=== PATIENT | female | born 2000 | race Caucasian/White ===

== ENCOUNTER 2023-10-02 22:02 | Inpatient (IN) ==
[2023-10-02] MEDS ORDERED: SODIUM CHLORIDE 0.9% 1,000 ML IV STA (22:38)
[2023-10-02] MEDS ORDERED: ONDANSETRON INJ 2 MG/ML 2 ML VIAL IV STA (22:38)
[2023-10-02] MEDS ORDERED: KETOROLAC 30 MG/ML VIAL IV STA (22:38)
--- NOTE | 2023-10-02 22:46 | Emergency Department Note ---
Impression & Plan Abdominal pain, Nausea ED Provider Note CHIEF COMPLAINT: Right-sided abdominal pain x 10 hours HISTORY OF PRESENT ILLNESS: This 23-year-old female patient presents to the emergency department via private vehicle for evaluation of right-sided abdominal pain for about 10 hours. The patient states pain came on suddenly. 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 She denies any fever. Appetite has been decreased since the onset of the pain. No dysuria, urinary frequency, urinary hesitancy, hematuria. The patient denies any abnormal vaginal bleeding or discharge. She has had some diarrhea throughout the day. Last menstrual period was 3 weeks ago. The patient denies any chance of , notes she is currently taking OCPs and uses condoms every time she is sexually active. The patient did take 3 Excedrin without relief of her symptoms. Patient has never had symptoms like this before. REVIEW OF SYSTEMS: A 10 system review of systems was performed with positives and pertinent negatives listed in the history of present illness. All other systems were reviewed and are negative. ALLERGIES: None PHYSICAL EXAM: VITALS: Vitals are noted on the nurse's note and reviewed by myself. Vital signs stable. GENERAL: This is a 23-year-old female, in no acute distress, nondiaphoretic, well-developed well-nourished. SKIN: The skin was without rashes, erythema, edema, or bruising. There is no tenting of the skin. Capillary refill less than 2 seconds. HEAD: Normocephalic atraumatic. EYES: Conjunctivae without injection, sclerae without icterus. NECK: Supple without nuchal rigidity. No lymphadenopathy. No JVD. HEART: Regular rate and rhythm without murmurs gallops or rubs. LUNGS: Clear to auscultation bilaterally without wheezes, rales or rhonchi. No retractions or accessory muscle use. ABDOMEN: Positive bowel sounds x 4. Generalized tenderness to palpation. This is worse on the right side abdomen is otherwise soft, without masses or organomegaly. Davidson sign negative. No guarding or rebound tenderness. No CVA tenderness bilaterally. MUSCULOSKELETAL: No muscle atrophy, erythema, or edema noted. Full range of motion without joint tenderness in all extremities. No tenderness to palpation. Normal gait. Strength 5/5 throughout. NEURO: Patient was alert and oriented to person place and time. No focal neurological deficits. An order was placed for continuous cytotechnologist. The monitor showed a sinus tachycardia at a ventricular rate of 128 bpm, per my interpretation. EMERGENCY DEPARTMENT COURSE: The patient was seen and evaluated as above. The patient has been experiencing abdominal pain which started earlier today. This is generalized, but seems to localize somewhat in the right side, specifically the right lower quadrant. Workup completed as noted. IV access was obtained, labs were drawn. The patient was hydrated with IV fluids and medicated with Toradol and Zofran. Labs with mild leukocytosis of 13,000. No anemia or thrombocytopenia. CT imaging unable to exclude acute appendicitis. I did consult with Tuan Lr PA-C with general surgery. He did see and evaluate the patient. The patient will be admitted under the general surgery service. Please see surgery dictation regarding ongoing management care of this patient Differential diagnosis includes appendicitis, diverticulitis, obstruction, inflammatory bowel disease, renal colic, PUD, biliary pathology, pancreatitis, mesenteric ischemia, aortic pathology, infections, genitourinary, UTI, perforated viscus, as well as others were entertained. I attest that I have personally reviewed the patient's current medication list. Patient was found to have normal blood pressure on screening and does not require follow-up. The chart was completed utilizing [employer] Speech voice recognition software. Grammatical errors, random word insertions, pronoun errors, and incomplete sentences are an occasional consequence of this system due to software limitations, ambient noise, and hardware issues. Any formal questions or concerns about the content, text, or information contained within the body of this dictation should be directly addressed to the provider for clarification. Past Med/Surg History Medical History PCOS (polycystic ovarian syndrome) Hypothyroid Depression with anxiety Elevated testosterone level in female Surgical History H/O hand surgery (11/2021) left hand tendon excision- UOC- 11/28 Family History Father Family history of reaction to anesthesia SLOW TO WAKE Hypertension Mother Anxiety Other Myocardial infarction Denies family history of Ovarian cancer Prostate cancer Diabetes Breast cancer Colorectal cancer Social History Smoking Status: Never smoker Second Hand Exposure: No; Do You Dip or Chew Tobacco: No; Hx Alcohol Use: Yes Alcohol type: beer Alcohol Intake Frequency: 2-3 x/Week Hx Substance Use: No Preferred Language: Kittitian Communication Ability: Effective Hearing Ability: Normal 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: No Beliefs That Will Affect Care: None marital status: Single Current Living Situation: Family Current Living Situation Comment: mom and dad current occupational status: student 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) Other Information That Helps Us Care for You: No Feels Safe at Home: Yes Safety Concerns: Feels Safe At This Time Childhood Exposure to Second-Hand Smoke: No Diet: regular Diet Comment: regular caffeine: Yes during the past year weight has: remained stable Dental Care, Regularly: Yes Physical Activity Frequency: Daily Seatbelt Use: always Sunscreen Use: Yes Assistive Devices: Glasses Assistive Devices Comment: permanent retainer Allergies Allergies Allergy/AdvReac Type Severity Reaction Status Date / Time No Known Allergies Allergy Verified 08/26/23 13:20 Home Meds Home Medications Medication Instructions Recorded Confirmed multivitamin with minerals 1 dose PO QAM 02/13/19 08/26/23 (Hair,Skin and Nails tablet) melatonin 10 mg capsule 10 mg PO HS PRN 10/28/20 08/26/23 trazodone 50 mg tablet 50 mg PO DAILY 06/16/22 08/26/23 drospirenone 3 mg-ethinyl 1 tab PO DAILY 03/31/23 08/26/23 estradiol 0.02 mg tablet (Vestura (28)) Previous Rx's Medication Instructions Recorded albuterol sulfate 90 mcg/actuation 2 puff inhalation Q6H PRN 07/20/22 aerosol inhaler shortness of breath or wheezing #18 grams hydroxyzine pamoate 25 mg capsule 25 mg PO TID PRN anxiety or 03/31/23 insomnia #30 caps levothyroxine 75 mcg tablet 75 mcg PO DAILY #30 tabs 08/26/23 fluoxetine 10 mg capsule (Prozac) 10 mg PO DAILY #90 caps 09/22/23 Results & Data (ED) Vital Signs Vital Signs - 24 hr 10/02/23 22:04 10/02/23 22:30 10/02/23 23:02 Temperature 36.6 C Temperature Source Temporal Artery Scan Pulse Rate 128 H 107 H Pulse Rate [Apical] 97 H Respiratory Rate 16 18 Respiratory Effort / Characteristics Non-Labored Spontaneous Respiratory Depth Normal Blood Pressure 135/82 Blood Pressure [Right Arm] 139/101 H Blood Pressure Mean 99 Blood Pressure Mean [Right Arm] 113 Pulse Oximetry 99 98 Oxygen Delivery Method Room Air Room Air Sepsis Recent Fever Within 48 Hours No Sepsis New/Unexplained Change in Mental Status N/A Sepsis Action Taken by Nursing No Action Required 10/02/23 23:02 Temperature Temperature Source Pulse Rate Pulse Rate [Apical] Respiratory Rate Respiratory Effort / Characteristics Respiratory Depth Blood Pressure Blood Pressure [Right Arm] Blood Pressure Mean Blood Pressure Mean [Right Arm] Pulse Oximetry 98 Oxygen Delivery Method Room Air Sepsis Recent Fever Within 48 Hours Sepsis New/Unexplained Change in Mental Status Sepsis Action Taken by Nursing Laboratory Data 10/02/23 22:27 10/02/23 22:27 Lab Results 10/02/23 10/02/23 10/02/23 Range/Units 22:17 22:27 23:39 WBC 13.04 H (4.8-10.8) K/ul RBC 4.69 (4.20-5.40) M/uL Hgb 13.5 (12.0-16.0) g/dl Hct 39.6 (37.0-47.0) % MCV 84.4 (80.0-100.0) fL MCH 28.8 (25.0-34.0) pg MCHC 34.1 (32.0-36.0) g/dL RDW Std Deviation 39.7 (36.4-46.3) fL RDW Coeff of Maurizio 13.0 (11.5-14.5) % Plt Count 251 (130-400) K/uL MPV 10.2 (9.4-12.4) fL Immature Gran % (Auto) 0.4 % Neut % (Auto) 64.9 % Lymph % (Auto) 27.7 % Ingham % (Auto) 5.7 % Eos % (Auto) 0.9 % Baso % (Auto) 0.4 % Neut # (Auto) 8.47 H (1.40-6.50) K/uL Lymph # (Auto) 3.61 H (1.20-3.40) K/uL Ingham # (Auto) 0.74 H (0.11-0.59) K/uL Eos # (Auto) 0.12 (0.00-0.50) K/uL Baso # (Auto) 0.05 (0.00-0.20) K/uL Immature Gran # (Auto) 0.05 (0.01-0.20) K/uL PT Cancelled 11.0 INR Cancelled 1.0 Sodium 137 (136-145) mmol/L Potassium 3.6 (3.5-5.1) mmol/L Chloride 104 (98-107) mmol/L Carbon Dioxide 23 (21-32) mmol/L Anion Gap 10 (3-11) BUN 17 (6-23) mg/dl Creatinine 0.89 (0.6-1.2) mg/dl Est Cr Clr Drug Dosing 119.4 ml/min Est GFR ( Amer) 107.4 ml/min Est GFR (Non-Af Amer) 92.6 ml/min BUN/Creatinine Ratio 19.1 (10-20) Glucose 85 (70-99(Fasting)) mg/dl Calcium 9.4 (8.6-10.3) mg/dl Total Bilirubin 0.4 (0.2-1.0) mg/dl AST 21 (13-39) U/L ALT 20 (7-52) U/L Alkaline Phosphatase 64 (34-104) U/L Troponin I High Sens 3.5 (0-14) pg/ml Total Protein 7.8 (6.0-8.3) gm/dl Albumin 4.4 (3.4-5.0) gm/dl Globulin 3.4 (2.5-4.0) gm/dl Albumin/Globulin Ratio 1.3 (0.9-2) Lipase 18 (11-82) U/L TSH 2.611 (0.300-4.500) uIu/ml HCG, Qual Negative (Negative) Urine Color Yellow Urine Appearance Clear (Clear) Urine pH 5.0 (4.5-7.5) Ur Specific Chadron 1.015 (1.000-1.030) Urine Protein Negative (Negative) Urine Glucose (UA) Negative (Negative) Urine Ketones Negative (Negative) Urine Blood Negative (Negative) Urine Nitrite Negative (Negative) Urine Bilirubin Negative (Negative) Urine Urobilinogen Negative (Negative) Ur Leukocyte Esterase 1+ H (Negative) Urine WBC (Auto) 10-30 H (0-5) /hpf Urine RBC (Auto) 0-4 (0-4) /hpf U Hyaline Cast (Auto) 1-5 (0-5) /lpf U Epithel Cells (Auto) >30 H (0-5) /lpf Urine Bacteria (Auto) 1+ H (Negative) POC Ur Test NEG (NEG) Administered Medications Acetaminophen (Ofirmev) 1,000 mg in 100 mls @ 400 mls/hr IV Q8H PRN PRN Reason: Moderate Pain (Scale 4, 5, 6) Stop: 10/06/23 00:23 Last Admin: 10/03/23 04:57 Dose: 400 mls/hr Documented By: PRAVEEN Cefoxitin Sodium 2,000 mg/ (Dextrose) 50 mls @ 100 mls/hr IV Q6H CASSIE; Protocol Stop: 10/13/23 00:59 Last Infusion: 10/03/23 01:35 Dose: Infused Documented By: Admin: 10/03/23 01:06 Dose: 100 mls/hr Documented By: CONCHITA Sodium Chloride (Nss) 1,000 mls @ 75 mls/hr IV .[id number] CASSIE Stop: 11/02/23 00:29 Last Infusion: 10/03/23 04:58 Dose: 0 mls/hr Documented By: Admin: 10/03/23 01:38 Dose: 75 mls/hr Documented By: Infusion: 10/03/23 01:38 Dose: Infused Documented By: Admin: 10/03/23 01:07 Dose: 75 mls/hr Documented By: CONCHITA Discontinued Medications Sodium Chloride (Nss) 1,000 mls @ 999 mls/hr IV .Q1H1M STA Stop: 10/02/23 23:38 Last Infusion: 10/03/23 00:04 Dose: Infused Documented By: Admin: 10/02/23 23:02 Dose: 999 mls/hr Documented By: YORDAN Ioversol (Optiray 320 500ml) 87 ml IV ONCE ONE Stop: 10/02/23 23:22 Last Admin: 10/02/23 23:22 Dose: 87 ml Documented By: FUNMILAYO Ketorolac Tromethamine (Ketorolac 30 Mg/Ml Vial) 30 mg IV NOW STA Stop: 10/02/23 22:39 Last Admin: 10/02/23 23:00 Dose: 30 mg Documented By: YORDAN Ondansetron HCl (Ondansetron Inj 2 Mg/Ml 2 Ml Vial) 4 mg IV NOW STA Stop: 10/02/23 22:39 Last Admin: 10/02/23 23:00 Dose: 4 mg Documented By: YORDAN Imaging Data Radiologist's Impression: Abdomen/Pelvis CT 10/02/23 22:38 Exam(s): CT ABDOMEN + PELVIS With Contrast EXAM: CT Abdomen and Pelvis With Intravenous Contrast CLINICAL HISTORY: Reason for exam: right sided/general abdominal pain. TECHNIQUE: Axial computed tomography images of the abdomen and pelvis with intravenous contrast. Automated exposure control was utilized for the study. A dose lowering technique was utilized adhering to the principles of ALARA. CONTRAST: Contrast must be dictated COMPARISON: None. FINDINGS: Lung bases: Unremarkable. No mass. No consolidation. ABDOMEN: Liver: Unremarkable. No mass. Gallbladder and bile ducts: Unremarkable. No calcified stones. No ductal dilation. Pancreas: Unremarkable. No mass. No ductal dilation. Spleen: Unremarkable. No splenomegaly. Adrenals: Unremarkable. No mass. Kidneys and ureters: Unremarkable. No solid mass. No hydronephrosis. Stomach and bowel: Multiple small bowel loops with mild thickening of the wall concerning for enteritis. No obstruction. PELVIS: Appendix: Area of proximal appendix measures up to 10 mm although this area is obscured and may include volume averaging related to appendiceal tortuosity. The remainder of the appendix measures 7 mm. Bladder: Unremarkable. No mass. Reproductive: Unremarkable as visualized. ABDOMEN and PELVIS: Intraperitoneal space: Unremarkable. No free air. No significant fluid collection. Bones/joints: No acute fracture. No dislocation. Soft tissues: Unremarkable. Vasculature: Unremarkable. No abdominal aortic aneurysm. Lymph nodes: Several lymph nodes along the medial aspect of the right colon and mesenteric root, largest measuring 11 mm which may indicate nonspecific inflammatory response versus mesenteric adenitis. IMPRESSION: 1. Cannot exclude early acute appendicitis due to mild prominence of the proximal appendix as described. Clinical correlation recommended and if indicated, surgical consultation. 2. Possible enteritis with mild reactive inflammatory lymph node enlargement versus sequela of adenitis. Electronically signed by: Shaylee Coffey MD 10/02/23 23:51 PM Discharge Plan Visit Data Chief Complaint: Abdominal Pain Stated Complaint: COUGH, ABD PAIN ED Provider: Franky López ED Midlevel Provider: Dora Pandey Discharge Problem: Abdominal pain, Nausea Patient Disposition: Admitted As Inpatient Discharge Instructions Interventions: ED Discharge Assessment Last Done: 10/03/23 01:14
[2023-10-02 22:50] LABS: Basophils # (auto) 0.05 K/uL (0.00-0.20); Basophils % (auto) 0.4 %; Eosinophils # (auto) 0.12 K/uL (0.00-0.50); Eosinophils % (auto) 0.9 %; Hematocrit (blood only) 39.6 % (37.0-47.0); Hemoglobin 13.5 g/dl (12.0-16.0); Immature Granulocytes # (auto) 0.05 K/uL (0.01-0.20); Immature Granulocytes % (auto) 0.4 %; Lymphocytes # (auto) 3.61 K/uL (1.20-3.40); Lymphocytes % (auto) 27.7 %; Mean Corpuscular Hemoglobin 28.8 pg (25.0-34.0); Mean Corpuscular Hgb Conc 34.1 g/dL (32.0-36.0); Mean Corpuscular Volume 84.4 fL (80.0-100.0); Mean Platelet Volume 10.2 fL (9.4-12.4); Monocytes # (auto) 0.74 K/uL (0.11-0.59); Monocytes % (auto) 5.7 %; Neutrophils # (auto) 8.47 K/uL (1.40-6.50); Neutrophils % (auto) 64.9 %; Platelet Count 251 K/uL (130-400); RDW Standard Deviation 39.7 fL (36.4-46.3); Red Blood Count 4.69 M/uL (4.20-5.40); White Blood Count 13.04 K/ul (4.8-10.8)
[2023-10-02 22:55] LABS: Pregnancy Test, Serum Negative (Negative)
[2023-10-02 22:59] LABS: Albumin Globulin Ratio 1.3 (0.9-2); Albumin Level 4.4 gm/dl (3.4-5.0); BUN Creatinine Ratio 19.1 (10-20); Bilirubin,Total 0.4 mg/dl (0.2-1.0); Calcium 9.4 mg/dl (8.6-10.3); Creatinine Clr Calc Pharmacy 119.4 ml/min; Est GFR (African American) 107.4 ml/min; Est GFR (Non-African American) 92.6 ml/min; Globulin 3.4 gm/dl (2.5-4.0); Potassium 3.6 mmol/L (3.5-5.1); Total Protein 7.8 gm/dl (6.0-8.3)
[2023-10-02 23:15] LABS: Troponin I High Sensitivity 3.5 pg/ml (0-14)
[2023-10-02 23:17] LABS: Appearance Urine Clear (Clear); Bacteria Urine Automated 1+ (Negative); Bilirubin Urine Negative (Negative); Blood Urine Negative (Negative); Color Urine Yellow; Epithelial Cell Urine Auto >30 /lpf (0-5); Glucose Urine UA Negative (Negative); Ketones Urine Negative (Negative); Leukocyte Esterase Urine 1+ (Negative); Nitrite Urine Negative (Negative); Protein Urine Negative (Negative); RBC Urine Automated 0-4 /hpf (0-4); Specific Gravity Urine 1.015 (1.000-1.030); Urobilinogen Urine Negative (Negative)
[2023-10-02] MEDS ORDERED: OPTIRAY 320 500ml IV ONE (23:21)
[2023-10-02 23:25] LABS: Thyroid Stimulating Hormone 2.611 uIu/ml (0.300-4.500)
--- NOTE | 2023-10-02 23:52 | CT Scan Report ---
Exam(s): CT ABDOMEN + PELVIS With Contrast EXAM: CT Abdomen and Pelvis With Intravenous Contrast CLINICAL HISTORY: Reason for exam: right sided/general abdominal pain. TECHNIQUE: Axial computed tomography images of the abdomen and pelvis with intravenous contrast. Automated exposure control was utilized for the study. A dose lowering technique was utilized adhering to the principles of ALARA. CONTRAST: Contrast must be dictated COMPARISON: None. FINDINGS: Lung bases: Unremarkable. No mass. No consolidation. ABDOMEN: Liver: Unremarkable. No mass. Gallbladder and bile ducts: Unremarkable. No calcified stones. No ductal dilation. Pancreas: Unremarkable. No mass. No ductal dilation. Spleen: Unremarkable. No splenomegaly. Adrenals: Unremarkable. No mass. Kidneys and ureters: Unremarkable. No solid mass. No hydronephrosis. Stomach and bowel: Multiple small bowel loops with mild thickening of the wall concerning for enteritis. No obstruction. PELVIS: Appendix: Area of proximal appendix measures up to 10 mm although this area is obscured and may include volume averaging related to appendiceal tortuosity. The remainder of the appendix measures 7 mm. Bladder: Unremarkable. No mass. Reproductive: Unremarkable as visualized. ABDOMEN and PELVIS: Intraperitoneal space: Unremarkable. No free air. No significant fluid collection. Bones/joints: No acute fracture. No dislocation. Soft tissues: Unremarkable. Vasculature: Unremarkable. No abdominal aortic aneurysm. Lymph nodes: Several lymph nodes along the medial aspect of the right colon and mesenteric root, largest measuring 11 mm which may indicate nonspecific inflammatory response versus mesenteric adenitis. IMPRESSION: 1. Cannot exclude early acute appendicitis due to mild prominence of the proximal appendix as described. Clinical correlation recommended and if indicated, surgical consultation. 2. Possible enteritis with mild reactive inflammatory lymph node enlargement versus sequela of adenitis. Electronically signed by: Shaylee Coffey MD 10/02/23 23:51 PM
[2023-10-03] MEDS ORDERED: ONDANSETRON INJ 2 MG/ML 2 ML VIAL IV PRN ×2 (00:24→09:48)
[2023-10-03] MEDS ORDERED: ACETAMINOPHEN 1,000 MG/100 ML VIAL IV PRN (00:24)
[2023-10-03] MEDS ORDERED: MoRPHine SULFATE 4 MG/ML 1 ML CARP\\VIAL IV PRN (00:24)
--- NOTE | 2023-10-03 00:24 | History & Physical Report ---
Date of Service October 03, 2023 Assessment & Plan (1) Abdominal pain: Plan: Is not tired clear whether or not the patient is suffering from acute appendicitis. I discussed with the patient at the bedside and offered her 3 possible options which include the followin. Repeat CT scan of the abdomen pelvis with oral and IV contrast 2. Discharge home with oral antibiotics and clinical monitoring 3. Admit patient to hospital tentatively plan on performing an appendectomy with Dr. Loomis on 10/03/2023. After discussing with the patient she opted to be admitted to the hospital with tentative plans on performing an appendectomy without a repeat CT scan. Will therefore proceed as follows: Analgesia be provided Antiemetics to be provided N.p.o. status will be implemented We will hydrate her with IV fluids Will initiate antibiotics in the form of Mefoxin. (She does report she has no known medicine allergies) Patient does have abnormal urinalysis. Urine culture has been sent. Antibiotics can be tailored further based on these results once available but selected antibiotic should cover most likely urinary pathogens are present. Will repeat labs in the morning Additional recommendations be forthcoming based on her clinical course as unfolds/response to the above treatment. 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 When I examined the patient the pain is primarily localized to the right lower quadrant. This is a 23-year-old female who presented to the emergency department secondary abdominal pain. Patient notes that approximately 3:00 PM on 10/02/2023 she developed some diffuse abdominal pain that was in the periumbilical region. She notes that the pain has persisted throughout the day but is now most prominent in the right lower quadrant. She did have nausea without vomiting. She denies any fevers, shakes, or chills. She does not report any modifying factors or radiation of pain. She has never had any abdominal surgeries in the past. Since presentation emergency department the patient had a CT scan of the abdomen pelvis where patient was noted to have some dilatation of the proximal appendix measuring up to 10 mm. Interpreted radiologist feels difficult to exclude an early appendicitis. CBC revealed white blood cell count was elevated at 13.0. Hemoglobin, hematocrit, platelet count were normal. Chemistry profile showed sodium and potassium along with BUN and creatinine were normal. There is no elevation of patient's LFTs or lipase. test was negative. Urinalysis did show 10-30 white blood cells per high-power field and 1+ bacteria. Urinalysis was negative for nitrites but did have 1+ leukocyte Estrace. EKG showed normal sinus rhythm. Did not be changes indicative of acute ischemia. At the time of my interview the patient was resting comfortably in bed and she was in no distress. Allergies Allergy/AdvReac Type Severity Reaction Status Date / Time No Known Allergies Allergy Verified 08/26/23 13:20 Home Medications Medication Instructions Recorded Confirmed Type multivitamin with minerals 1 dose PO QAM 02/13/19 08/26/23 History (Hair,Skin and Nails tablet) melatonin 10 mg capsule 10 mg PO HS PRN 10/28/20 08/26/23 History trazodone 50 mg tablet 50 mg PO DAILY 06/16/22 08/26/23 History albuterol sulfate 90 mcg/actuation 2 puff inhalation Q6H PRN 07/20/22 08/26/23 Rx aerosol inhaler shortness of breath or wheezing #18 grams drospirenone 3 mg-ethinyl 1 tab PO DAILY 03/31/23 08/26/23 History estradiol 0.02 mg tablet (Vestura (28)) hydroxyzine pamoate 25 mg capsule 25 mg PO TID PRN anxiety or 03/31/23 08/26/23 Rx insomnia #30 caps levothyroxine 75 mcg tablet 75 mcg PO DAILY #30 tabs 08/26/23 08/26/23 Rx fluoxetine 10 mg capsule (Prozac) 10 mg PO DAILY #90 caps 09/22/23 Rx Past Med/Surg History Medical History PCOS (polycystic ovarian syndrome) Hypothyroid Depression with anxiety Elevated testosterone level in female Surgical History H/O hand surgery (11/2021) left hand tendon excision- UOC- 11/28 Family History Father Family history of reaction to anesthesia SLOW TO WAKE Hypertension Mother Anxiety Other Myocardial infarction Denies family history of Ovarian cancer Prostate cancer Diabetes Breast cancer Colorectal cancer Social History Smoking Status: Never smoker Second Hand Exposure: No; Do You Dip or Chew Tobacco: No; Hx Alcohol Use: Yes Alcohol type: beer Alcohol Intake Frequency: 2-3 x/Week Hx Substance Use: No Preferred Language: Portuguese Communication Ability: Effective Hearing Ability: Normal 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 Beliefs That Will Affect Care: None marital status: Single Current Living Situation: Family Current Living Situation Comment: mom and dad current occupational status: student 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) Other Information That Helps Us Care for You: No Feels Safe at Home: Yes Safety Concerns: Feels Safe At This Time Childhood Exposure to Second-Hand Smoke: No Diet: regular Diet Comment: regular caffeine: Yes during the past year weight has: remained stable Dental Care, Regularly: Yes Physical Activity Frequency: Daily Seatbelt Use: always Sunscreen Use: Yes Assistive Devices: Glasses Assistive Devices Comment: permanent retainer Review of Systems Constitutional: no fever and no chills Eyes: + corrective lenses Ear, Nose, Mouth, Throat: no hearing loss Respiratory: no cough and no dyspnea Cardiovascular: no chest pain Gastrointestinal: as per Subjective / HPI Genitourinary: no dysuria Musculoskeletal: no back pain Integumentary: no rash Neurologic: no localized weakness Physical Exam Constitutional: WD/WN, vitals as above Eyes: no conjunctival abnormality Wears glasses ENMT: Ears: no hearing impairment and no external ear abnormality Mouth: no oropharynx abnormality Neck: trachea midline Respiratory: normal respiratory effort; no respiratory distress and no labored breathing No wheezing Cardiovascular: Rate/Rhythm: regular rate and regular rhythm Vessels: radial pulses present Gastrointestinal (Abdomen): Abdomen is rotund but soft. There is no rebound tenderness or guarding but patient did have pain in the periumbilical region as well as the right lower quadrant. The pain did appear to be most severe with palpation of the right lower quadrant. Musculoskeletal: No calf tenderness Skin: no rashes Neurologic: moves all extremities Psychiatric: A+Ox3, euthymic affect Results & Data Results & Data Vital Signs (Past 12 Hours) Vital Signs Temp Pulse Pulse Resp BP BP Pulse Ox 10/02/23 23:02 98 10/02/23 23:02 97 H 18 139/101 H 98 10/02/23 22:04 36.6 C 128 H 16 135/82 99 O2 Del Method 10/02/23 23:02 Room Air 10/02/23 23:02 Room Air 10/02/23 22:04 Room Air Supervising Physician Co-Signing Physician Notes Patient seen and examined, labs and imaging reviewed, agree with above. Presented to the emergency department with abdominal pain, CT scan suggestive of appendicitis. On exam she is afebrile with stable vitals. Tender to palpation in the right lower quadrant. WBC [address] scan personally viewed and interpreted and agree with the assessment of a mildly dilated appendix which may suggest early acute appendicitis. Discussed options to include observation with antibiotics versus appendectomy, patient elects for appendectomy. Plan for laparoscopic appendectomy, possible robotic Risk of the procedure were discussed to include but not limited to bleeding, infection, normal appendix, damage to surrounding structures, conversion open, abscess, need for future more extensive surgery, and the risk of anesthesia Potential discharge later this afternoon Wound care instructions and activity restriction reviewed, return precautions given PG Care Time/CCT Total # of Minutes Spent Total Time Spent with Patient: Total time spent is greater than 50% in coordination of care (as documented) at patient's floor/unit and/or counseling patient: Coding Level of Care Code 11902 INT INP/OBS CARE 3/75MIN Diagnoses Abdominal pain R10.9
[2023-10-03] MEDS: cefOXitin 2,000 MG in DEXTROSE 5 % MINI-B 50 ML IV SCH ×3 (01:06→15:05)
[2023-10-03] MEDS: SODIUM CHLORIDE 0.9% 1,000 ML IV SCH ×2 (01:07→01:38)
[2023-10-03 05:59] LABS: Basophils # (auto) 0.04 K/uL (0.00-0.20); Basophils % (auto) 0.4 %; Eosinophils # (auto) 0.06 K/uL (0.00-0.50); Eosinophils % (auto) 0.6 %; Hematocrit (blood only) 35.4 % (37.0-47.0); Hemoglobin 11.9 g/dl (12.0-16.0); Immature Granulocytes # (auto) 0.05 K/uL (0.01-0.20); Immature Granulocytes % (auto) 0.5 %; Lymphocytes # (auto) 2.81 K/uL (1.20-3.40); Lymphocytes % (auto) 27.2 %; Mean Corpuscular Hgb Conc 33.6 g/dL (32.0-36.0); Mean Corpuscular Volume 86.1 fL (80.0-100.0); Mean Platelet Volume 10.6 fL (9.4-12.4); Monocytes # (auto) 0.65 K/uL (0.11-0.59); Monocytes % (auto) 6.3 %; Neutrophils # (auto) 6.73 K/uL (1.40-6.50); Platelet Count 182 K/uL (130-400); RDW Standard Deviation 40.2 fL (36.4-46.3); Red Blood Count 4.11 M/uL (4.20-5.40); White Blood Count 10.34 K/ul (4.8-10.8)
[2023-10-03 06:08] LABS: Anion Gap 8 (3-11); Calcium 8.7 mg/dl (8.6-10.3); Carbon Dioxide 21 mmol/L (21-32); Chloride 110 mmol/L (98-107); Potassium 3.9 mmol/L (3.5-5.1); Sodium 139 mmol/L (136-145)
[2023-10-03 06:13] LABS: BUN Creatinine Ratio 24.6 (10-20); Blood Urea Nitrogen 15 mg/dl (6-23); Creatinine Clr Calc Pharmacy 192.6 ml/min; Est GFR (African American) > 150.0 ml/min; Est GFR (Non-African American) 129.6 ml/min; Glucose 88 mg/dl (70-99(Fasting))
[2023-10-03] MEDS ORDERED: LIDOCAINE 2% 2 ML VIAL/AMP(20MG/ML) INFIL ONE (09:35)
[2023-10-03] MEDS ORDERED: ROCURONIUM BROMIDE 10 MG/ML 5 ML VIAL IV ONE (09:35)
[2023-10-03] MEDS ORDERED: PROPOFOL IV EMULSION 10 MG/ML 20 ML VIAL IV ONE (09:35)
[2023-10-03] MEDS ORDERED: DEXAMETHASONE SOD INJ 4 MG/ML VIAL ONE (09:35)
[2023-10-03] MEDS ORDERED: ONDANSETRON INJ 2 MG/ML 2 ML VIAL ONE (09:35)
[2023-10-03] MEDS ORDERED: fentaNYL citrate PF 100 MCG/2 ML VIAL ONE ×2 (09:36→12:15)
[2023-10-03] MEDS ORDERED: MIDAZOLAM HCL 1 MG/ML 2ML VIAL ONE (09:36)
[2023-10-03] MEDS ORDERED: PROMETHAZINE HCL 6.25 MG in SODIUM CHLORIDE 0.9% 50 ML IV PRN (09:48)
[2023-10-03] MEDS ORDERED: ATROPINE SULFATE 0.1 MG/ML 10ML SYR IV PRN (09:48)
[2023-10-03] MEDS ORDERED: ePHEDrine sulfate 50 MG/ML AMP IV PRN (09:48)
[2023-10-03] MEDS ORDERED: SCOPOLAMINE 1 MG TDSY TD STA (10:06)
--- NOTE | 2023-10-03 10:08 | Anesthesiology Consultation ---
Date of Service October 03, 2023 Assessment & Plan Chart Review Chart Review: Acceptable Risk for Surgery and Patient NOT seen in Pre Admission Testing Consults Requested none ASA ASA3 Proposed Anesthesia Anesthesia Type: General Risk / Benefits Reviewed With: PT / POA / Parent / Guardian, Accepts Plan and Informed Consent Obtained History Surgery Operation Date: 10/03/23 11:30 Proposed Procedures p Laparoscopic Appendectomy - Laurent Loomis, DO, FACS Height/Weight Height: 5 ft 2 in Weight: 133.9 kg Allergies Allergy/AdvReac Type Severity Reaction Status Date / Time No Known Allergies Allergy Verified 08/26/23 13:20 Medications Home Medications Medication Instructions Recorded Confirmed Last Taken multivitamin with minerals 1 dose PO QAM 02/13/19 08/26/23 02/25/19 (Hair,Skin and Nails tablet) melatonin 10 mg capsule 10 mg PO HS PRN 10/28/20 08/26/23 Unknown trazodone 50 mg tablet 50 mg PO DAILY 06/16/22 08/26/23 Unknown albuterol sulfate 90 mcg/actuation 2 puff inhalation Q6H PRN 07/20/22 08/26/23 Unknown aerosol inhaler shortness of breath or wheezing #18 grams drospirenone 3 mg-ethinyl 1 tab PO DAILY 03/31/23 08/26/23 Unknown estradiol 0.02 mg tablet (Vestura (28)) hydroxyzine pamoate 25 mg capsule 25 mg PO TID PRN anxiety or 03/31/23 08/26/23 Unknown insomnia #30 caps levothyroxine 75 mcg tablet 75 mcg PO DAILY #30 tabs 08/26/23 08/26/23 Unknown fluoxetine 10 mg capsule (Prozac) 10 mg PO DAILY #90 caps 09/22/23 Unknown Active Medications Generic Name Dose Route Start Last Admin Trade Name Freq PRN Reason Stop Dose Admin Acetaminophen 1,000 mg in 100 mls @ 400 mls/hr 10/03/23 00:24 10/03/23 05:15 Ofirmev IV 10/06/23 00:23 Infused Q8H PRN Infusion Moderate Pain (Scale 4, 5, 6) Cefoxitin Sodium 2,000 mg/ 50 mls @ 100 mls/hr 10/03/23 01:00 10/03/23 06:54 Dextrose IV 10/13/23 00:59 Infused Q6H CASSIE Infusion Protocol Sodium Chloride 1,000 mls @ 75 mls/hr 10/03/23 00:30 10/03/23 06:25 Nss IV 11/02/23 00:29 0 mls/hr .[id number] CASSIE Infusion NPO Date Last Intake of Fluids: 10/02/23 Time Last Intake of Fluids: 15:00 Date Last Intake of Solids: 10/02/23 Time Last Intake of Solids: 15:00 Past Medical History Medical History PCOS (polycystic ovarian syndrome) Hypothyroid Depression with anxiety Elevated testosterone level in female Exercise / Class Metabolic Activity II 4-5 Yardwork/Stairs/Walk up hill Past Family History Family History Father Family history of reaction to anesthesia SLOW TO WAKE Hypertension Mother Anxiety Other Myocardial infarction Denies family history of Ovarian cancer Prostate cancer Diabetes Breast cancer Colorectal cancer Past Surgical History Surgical History H/O hand surgery (11/2021) left hand tendon excision- [facility]- 11/28 Past Anesthesia History No Hx of Anesthesia Complications and No Family Hx of Anesthesia Complications Social History Smoking Status: Never smoker Do You Dip or Chew Tobacco: No Hx Alcohol Use: Yes Alcohol type: beer alcohol intake frequency: a few times a week Hx Substance Use: No substance use type: does not use Last Used Substance: Hours (ago) Review of Systems ROS Unobtainable: All systems reviewed & are unremarkable except as noted in HPI & below Physical Exam Vital Signs Last Vital Signs Temp 36.4 C L 10/03/23 09:34 Pulse 94 H 10/03/23 09:34 Resp 20 10/03/23 09:34 BP 131/79 10/03/23 09:34 Pulse Ox 100 10/03/23 09:34 O2 Del Method Room Air 10/03/23 09:34 Constitutional + morbidly obese; no acute distress ENMT Mouth: no TMJ abnormality Thyromental Distance: > or= 3.5 Finger Breadths Mallampati Class: II Neck normal visual inspection and trachea midline; neck extension not limited Respiratory normal respiratory effort Auscultation: lungs clear to auscultation bilaterally Cardiovascular Rate/Rhythm: regular rate and regular rhythm Heart Sounds: no murmur Musculoskeletal Spine: normal cervical ROM Extremities: full ROM of extremities Neurologic moves all extremities Psychiatric Orientation: alert and oriented x 3 Testing Laboratory Results 10/03/23 05:29 10/03/23 05:41 PT 11.0 Seconds (9.0-12.0) 10/02/23 23:39 INR 1.0 (0.9-1.1) 10/02/23 23:39 Urine Color Yellow 10/02/23 22:17 Urine Appearance Clear (Clear) 10/02/23 22:17 Urine pH 5.0 (4.5-7.5) 10/02/23 22:17 Ur Specific [place] 1.015 (1.000-1.030) 10/02/23 22:17 Urine Protein Negative (Negative) 10/02/23 22:17 Urine Glucose (UA) Negative (Negative) 10/02/23 22:17 Urine Ketones Negative (Negative) 10/02/23 22:17 Urine Nitrite Negative (Negative) 10/02/23 22:17 Ur Leukocyte Esterase 1+ (Negative) H 10/02/23 22:17 Urine WBC (Auto) 10-30 /hpf (0-5) H 10/02/23 22:17 Urine RBC (Auto) 0-4 /hpf (0-4) 10/02/23 22:17 U Hyaline Cast (Auto) 1-5 /lpf (0-5) 10/02/23 22:17 U Epithel Cells (Auto) >30 /lpf (0-5) H 10/02/23 22:17 Urine Bacteria (Auto) 1+ (Negative) H 10/02/23 22:17 10/02/23 22:17 POC Ur Test NEG
[2023-10-03] MEDS ORDERED: LACTATED RINGER'S 1,000 ML IV SCH (10:15)
--- NOTE | 2023-10-03 10:15 | Surgery Progress Note ---
Date of Service October 03, 2023 Assessment & Plan (1) Acute appendicitis with localized peritonitis: Plan: Suspected early acute appendicitis Plan for laparoscopic appendectomy, possible robotic Risk of the procedure were discussed to include but not limited to bleeding, infection, normal appendix, damage to surrounding structures, conversion open, abscess, need for future more extensive surgery, and the risk of anesthesia Potential discharge later this afternoon Wound care instructions and activity restriction reviewed, return precautions given Admission and Anticipated Discharge Date Admission Date: October 03, 2023 Subjective Here for possible appendicitis, still with pain in right lower quadrant on movement Physical Exam Constitutional: WD/WN, vitals as above + morbidly obese Respiratory: normal respiratory effort, lungs clear to auscultation Cardiovascular: RRR, no murmur, no edema Gastrointestinal (Abdomen): Percussion/Palpation: + abdomen tender (Right lower quad) and abdomen soft; no guarding, abdomen not rigid and no hernia Results & Data Vital Signs (Past 12 Hours) Vital Signs Temp Pulse Pulse Pulse Resp BP BP 10/03/23 10:07 10/03/23 09:34 36.4 C L 94 H 20 131/79 10/03/23 07:08 36.7 C 90 16 138/82 10/03/23 01:25 36.6 C 97 H 18 125/85 10/03/23 01:14 95 H 18 106/64 10/02/23 23:02 10/02/23 23:02 97 H 18 139/101 H 10/02/23 22:30 107 H Pulse Ox O2 Del Method 10/03/23 10:07 Room Air 10/03/23 09:34 100 Room Air 10/03/23 07:08 95 Room Air 10/03/23 01:25 96 Room Air 10/03/23 01:14 98 Room Air 10/02/23 23:02 98 Room Air 10/02/23 23:02 98 Room Air 10/02/23 22:30 Laboratory Results Laboratory Results - last 24 hr 10/02/23 10/02/23 10/02/23 22:17 22:27 23:39 WBC 13.04 H RBC 4.69 Hgb 13.5 Hct 39.6 MCV 84.4 MCH 28.8 MCHC 34.1 RDW Std Deviation 39.7 RDW Coeff of Maurizio 13.0 Plt Count 251 MPV 10.2 Immature Gran % (Auto) 0.4 Neut % (Auto) 64.9 Lymph % (Auto) 27.7 Pope % (Auto) 5.7 Eos % (Auto) 0.9 Baso % (Auto) 0.4 Neut # (Auto) 8.47 H Lymph # (Auto) 3.61 H Pope # (Auto) 0.74 H Eos # (Auto) 0.12 Baso # (Auto) 0.05 Immature Gran # (Auto) 0.05 PT Cancelled 11.0 INR Cancelled 1.0 Sodium 137 Potassium 3.6 Chloride 104 Carbon Dioxide 23 Anion Gap 10 BUN 17 Creatinine 0.89 Est Cr Clr Drug Dosing 119.4 Est GFR ( Amer) 107.4 Est GFR (Non-Af Amer) 92.6 BUN/Creatinine Ratio 19.1 Glucose 85 Calcium 9.4 Total Bilirubin 0.4 AST 21 ALT 20 Alkaline Phosphatase 64 Troponin I High Sens 3.5 Total Protein 7.8 Albumin 4.4 Globulin 3.4 Albumin/Globulin Ratio 1.3 Lipase 18 TSH 2.611 HCG, Qual Negative Urine Color Yellow Urine Appearance Clear Urine pH 5.0 Ur Specific [place] 1.015 Urine Protein Negative Urine Glucose (UA) Negative Urine Ketones Negative Urine Blood Negative Urine Nitrite Negative Urine Bilirubin Negative Urine Urobilinogen Negative Ur Leukocyte Esterase 1+ H Urine WBC (Auto) 10-30 H Urine RBC (Auto) 0-4 U Hyaline Cast (Auto) 1-5 U Epithel Cells (Auto) >30 H Urine Bacteria (Auto) 1+ H POC Ur Test NEG 10/03/23 10/03/23 05:29 05:41 WBC 10.34 RBC 4.11 L Hgb 11.9 L Hct 35.4 L MCV 86.1 MCH 29.0 MCHC 33.6 RDW Std Deviation 40.2 RDW Coeff of Maurizio 13.0 Plt Count 182 MPV 10.6 Immature Gran % (Auto) 0.5 Neut % (Auto) 65.0 Lymph % (Auto) 27.2 Pope % (Auto) 6.3 Eos % (Auto) 0.6 Baso % (Auto) 0.4 Neut # (Auto) 6.73 H Lymph # (Auto) 2.81 Pope # (Auto) 0.65 H Eos # (Auto) 0.06 Baso # (Auto) 0.04 Immature Gran # (Auto) 0.05 PT INR Sodium 139 Potassium 3.9 Chloride 110 H Carbon Dioxide 21 Anion Gap 8 BUN 15 Creatinine 0.61 Est Cr Clr Drug Dosing 192.6 Est GFR ( Amer) > 150.0 Est GFR (Non-Af Amer) 129.6 BUN/Creatinine Ratio 24.6 H Glucose 88 Calcium 8.7 Total Bilirubin AST ALT Alkaline Phosphatase Troponin I High Sens Total Protein Albumin Globulin Albumin/Globulin Ratio Lipase TSH HCG, Qual Urine Color Urine Appearance Urine pH Ur Specific [place] Urine Protein Urine Glucose (UA) Urine Ketones Urine Blood Urine Nitrite Urine Bilirubin Urine Urobilinogen Ur Leukocyte Esterase Urine WBC (Auto) Urine RBC (Auto) U Hyaline Cast (Auto) U Epithel Cells (Auto) Urine Bacteria (Auto) POC Ur Test PG Care Time/CCT Total # of Minutes Spent Total Time Spent with Patient: Total time spent is greater than 50% in coordination of care (as documented) at patient's floor/unit and/or counseling patient: Coding Level of Care Code 01518 SUB INP/OBS CARE 2/35MIN Diagnoses Acute appendicitis with localized peritonitis K35.30
[2023-10-03] MEDS ORDERED: BUPIVACAINE 0.5 % 5 MG/1 ML MPF 30ML VIAL ONE (10:24)
[2023-10-03] MEDS ORDERED: SUGAMMADEX SODIUM 200 MG/2 ML VIAL IV ONE (12:06)
--- NOTE | 2023-10-03 12:36 | Operative Report ---
PG Post Operative Report Pre & Post Diagnosis Operation Date: 10/03/23 11:30 Pre-Op Diagnosis: Appendicitis Post-Op Diagnosis: Appendicitis I identified the patient and participated in the time-out.: Yes Procedure Operation Date: 10/03/23 11:30 Actual Procedures p Laparoscopic Appendectomy - Laurent Loomis DO, IBETH Surgeon Laurent Loomis DO, FACS Filling Machine Tender Vel Hickey Estimated Blood Loss 10 Findings Consistent with Post-Op Diagnosis Moderately inflamed appendix without evidence of perforation Specimens Appendix Anesthesia Type General Complications none Disposition Accompanied Patient To Recovery: No Disposition: Recovery Room Indications 23-year-old female presented with signs symptoms of acute appendicitis, CT scan showed likely early acute appendicitis, plan for laparoscopic appendectomy, possible robotic. The risks of the procedure were discussed, all questions were answered, and the patient agreed to proceed with surgery as planned. Description of Procedure The patient was properly identified, consented, and taken to the operating room where she was placed in the supine position. General endotracheal anesthesia was induced. SCDs and a safety belt were placed. Preoperative antibiotics were administered. A Garza catheter was not placed. The patient's abdomen was prepped and draped in the standard sterile fashion. Surgical timeout was performed and all parties were in agreement that this was the correct patient and procedure to be performed and we continued as planned. A stab incision was made in the left upper quadrant and the Veress needle was inserted. Saline drop test confirmed entry into the peritoneum. The abdomen was insufflated with carbon dioxide which the patient tolerated without incident. An incision was made superior and to the left of the umbilicus overlying the rectus muscle. The abdomen was then entered using the Optiview technique and a 5 mm trocar. The laparoscope was inserted and no damage from initial trocar or Veress needle placement was noted, no gross abnormalities were noted within the 4 quadrants of the abdomen. An 12 mm port was placed in the left lower quadrant with care not to damage the epigastric vessels, and a 5 mm port was placed in the supraumbilical midline with care not to damage the bladder. The patient was placed in Trendelenburg position and rotated towards the left. The small bowel was swept away from the right lower quadrant. The cecum was grasped with an atraumatic grasper exposing the appendix. The appendix was mild ly inflamed and there was no evidence of perforation. There was no fluid in the pelvis. A window was created between the base of the appendix and the mesoappendix. A phelan loaded endoscopic stapler was then used to divide the appendix at its base. The Sonicision was then used to divide the mesoappendix. Hemostasis was good. The appendix was placed in an Endo Catch bag and removed through the left lower quadrant port site. The right lower quadrant and pelvis was irrigated and hemostasis was found to be good. 5 mm trochars were removed under direct visualization and the abdomen was allowed to collapse. 12 mm port site fascia was closed utilizing a Mario-Micheal device and an 0 Vicryl suture x 2. The wound was irrigated, and the skin of all ports was closed with 4-0 Monocryl subcuticular sutures. Dermabond was placed over the wounds. The patient was extubated in the operating room and taken to the PACU where she recovered without apparent incident. All sponge, instrument and needle counts were correct at the conclusion of the procedure. The patient tolerated the procedure well. The nurse practitioner was present and scrubbed for the entire the procedure, she was critical in positioning the patient, prepping and draping, retraction and exposure, driving the laparoscope, removal of the appendix and closure the incisions, placement of the dressings. Patient is 5 foot 2 and weighs 134 kg, her BMI is 54. Due to this the case was more difficult and added about 50% of the time to the operation I attest to the content of the Intraoperative Record and any orders documented therein. Any exceptions are noted below.
[2023-10-03] MEDS ORDERED: oxyCODONE/ACETAMINOPHEN 5mg/325mg TAB PO PRN ×2 (12:47)
[2023-10-03] MEDS ORDERED: ACETAMINOPHEN 500 MG TAB PO PRN (12:47)
[2023-10-03] MEDS: fentaNYL citrate PF 100 MCG/2 ML VIAL IV PRN ×3 (13:20→13:30)
--- NOTE | 2023-10-03 13:35 | Anesthesiology Progress Note ---
Date of Service October 03, 2023 Anesthesia Post Procedure Vital Signs Vital Signs: Temp Pulse Pulse Pulse Resp BP BP 10/03/23 13:30 73 16 117/71 10/03/23 13:20 37 C 73 22 102/62 10/03/23 13:10 75 25 H 113/77 10/03/23 13:00 82 22 119/73 10/03/23 12:52 37.7 C H 78 12 120/88 10/03/23 10:07 10/03/23 09:34 36.4 C L 94 H 20 131/79 10/03/23 07:08 36.7 C 90 16 138/82 10/03/23 01:25 36.6 C 97 H 18 125/85 10/03/23 01:14 95 H 18 106/64 10/02/23 23:02 10/02/23 23:02 97 H 18 139/101 H 10/02/23 22:30 107 H 10/02/23 22:04 36.6 C 128 H 16 135/82 Pulse Ox O2 Del Method O2 Flow Rate 10/03/23 13:30 92 Room Air 10/03/23 13:20 94 Room Air 10/03/23 13:10 95 Oxymask 6 10/03/23 13:00 98 Oxymask 6 10/03/23 12:52 96 Oxymask 6 10/03/23 10:07 Room Air 10/03/23 09:34 100 Room Air 10/03/23 07:08 95 Room Air 10/03/23 01:25 96 Room Air 10/03/23 01:14 98 Room Air 10/02/23 23:02 98 Room Air 10/02/23 23:02 98 Room Air 10/02/23 22:30 10/02/23 22:04 99 Room Air Pain Intensity Right Abdomen: Pain Intensity: 5 Transfer of Care Handoff Completed per policy Notes Mental Status: alert / awake / arousable Patient Amnestic to Procedure: Yes Nausea / Vomiting: adequately controlled Pain: adequately controlled Airway Patency, RR, SpO2: stable & adequate BP & HR: stable & adequate Hydration State: stable & adequate Anesthetic Complications: no major complications apparent and Pt Satisfied with anesthetic care
[2023-10-03] MEDS ORDERED: CHECK SCOPOLAMINE PATCH PLACEMENT SCH (16:00)
--- NOTE | 2023-10-03 19:31 | Electrocardiogram Report ---
Test Reason : Blood Pressure : / mmHG Vent. Rate : 101 BPM Atrial Rate : 101 BPM P-R Int : 162 ms QRS Dur : 080 ms QT Int : 352 ms P-R-T Axes : 028 005 003 degrees QTc Int : 456 ms Sinus tachycardia Nonspecific ST abnormality Abnormal ECG No previous ECGs available Confirmed by Omari Dunne ([id number]) on 10/03/2023 7:30:34 PM Referred By: REFERRED SELF Confirmed By:Rafy Dunne
--- NOTE | 2023-10-04 15:35 | Discharge Summary ---
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 When I examined the patient the pain is primarily localized to the right lower quadrant. This is a 23-year-old female who presented to the emergency department secondary abdominal pain. Patient notes that approximately 3:00 PM on 10/02/2023 she developed some diffuse abdominal pain that was in the periumbilical region. She notes that the pain has persisted throughout the day but is now most prominent in the right lower quadrant. She did have nausea without vomiting. She denies any fevers, shakes, or chills. She does not report any modifying factors or radiation of pain. She has never had any abdominal surgeries in the past. Since presentation emergency department the patient had a CT scan of the abdomen pelvis where patient was noted to have some dilatation of the proximal appendix measuring up to 10 mm. Interpreted radiologist feels difficult to exclude an early appendicitis. CBC revealed white blood cell count was elevated at 13.0. Hemoglobin, hematocrit, platelet count were normal. Chemistry profile showed sodium and potassium along with BUN and creatinine were normal. There is no elevation of patient's LFTs or lipase. test was negative. Urinalysis did show 10-30 white blood cells per high-power field and 1+ bacteria. Urinalysis was negative for nitrites but did have 1+ leukocyte Estrace. EKG showed normal sinus rhythm. Did not be changes indicative of acute ischemia. At the time of my interview the patient was resting comfortably in bed and she was in no distress. Principal Diagnosis acute appendicitis Discharge Exam Constitutional WD/WN, vitals as above Respiratory normal respiratory effort Auscultation: lungs clear to auscultation bilaterally Cardiovascular RRR, no murmur, no edema Gastrointestinal (Abdomen) Percussion/Palpation: + abdomen tender (RLQ ) and abdomen soft; no guarding, abdomen not rigid and no hernia Discharge Data Allergies Allergy/AdvReac Type Severity Reaction Status Date / Time No Known Allergies Allergy Verified 10/04/23 11:25 Consultations 10/03/23 00:05 Consult General Surgery Stat 10/03/23 00:33 ED Decision to Admit Stat Procedures Performed Operation Date: 10/03/23 11:30 Actual Procedures p Laparoscopic Appendectomy - Laurent Loomis DO, FACS Ordered Studies 10/02/23 22:38 CT abd pelvis IV con only [phone] Scan Report Patient: LILLIAN MAN Admit Date: 10/02/23 MR#: [id number] Address1: [address] Acct ID:[id number] Address2: Date: [address] [facility] Zip: [place] [address] Age: 23 Location: ED Sex: F Room/Bed: Att Phy: Diagnosis: COUGH, ABD PAIN So Phy: Estella Ralph DO Service Date: 10/02/23 [facility] Phy: Interpreting Phy: Shaylee Coffey MDAdmit Phy: Ordering Phy: Dora Pandey PA-C cc: ~ Exam(s): CT ABDOMEN + PELVIS With Contrast EXAM: CT Abdomen and Pelvis With Intravenous Contrast CLINICAL HISTORY: Reason for exam: right sided/general abdominal pain. TECHNIQUE: Axial computed tomography images of the abdomen and pelvis with intravenous contrast. Automated exposure control was utilized for the study. A dose lowering technique was utilized adhering to the principles of ALARA. CONTRAST: Contrast must be dictated COMPARISON: None. FINDINGS: Lung bases: Unremarkable. No mass. No consolidation. ABDOMEN: Liver: Unremarkable. No mass. Gallbladder and bile ducts: Unremarkable. No calcified stones. No ductal dilation. Pancreas: Unremarkable. No mass. No ductal dilation. Spleen: Unremarkable. No splenomegaly. Adrenals: Unremarkable. No mass. Kidneys and ureters: Unremarkable. No solid mass. No hydronephrosis. Stomach and bowel: Multiple small bowel loops with mild thickening of the wall concerning for enteritis. No obstruction. PELVIS: Appendix: Area of proximal appendix measures up to 10 mm although this area is obscured and may include volume averaging related to appendiceal tortuosity. The remainder of the appendix measures 7 mm. Bladder: Unremarkable. No mass. Reproductive: Unremarkable as visualized. ABDOMEN and PELVIS: Intraperitoneal space: Unremarkable. No free air. No significant fluid collection. Bones/joints: No acute fracture. No dislocation. Soft tissues: Unremarkable. Vasculature: Unremarkable. No abdominal aortic aneurysm. Lymph nodes: Several lymph nodes along the medial aspect of the right colon and mesenteric root, largest measuring 11 mm which may indicate nonspecific inflammatory response versus mesenteric adenitis. IMPRESSION: 1. Cannot exclude early acute appendicitis due to mild prominence of the proximal appendix as described. Clinical correlation recommended and if indicated, surgical consultation. 2. Possible enteritis with mild reactive inflammatory lymph node enlargement versus sequela of adenitis. Electronically signed by: Shaylee Coffey MD 10/02/23 23:51 PM Dictated: 10/02/232350 Transcribed: 10/02/232350 Hospital Course (1) Acute appendicitis with localized peritonitis: Patient presented to the ER on 10/02/23 with complaint of abdominal pain. CT imaging showed appendicitis and the patient was admitted to the hospital, and given IV antibiotics. She underwent a laparoscopic appendectomy on 10/03/23. After surgery the patient was tolerating a diet, pain was controlled, VSS and was deemed stable for discharge on 10/03/23. Patient was instructed to follow up in the office with Dr. Loomis in 2 weeks. Total Time Total Time Spent Total Time Spent (In Minutes): 20 Discharge Plan Discharge Items Patient Disposition: Home - Self-Care Reason For Visit: APPY Discharge Diagnosis: Laparoscopic Appendectomy Activity: As commented below Lifting: No more than 25 pounds Bathing Comment: shower. No pools or bath for 2 weeks Exercise/Sports: Wait until after follow-up appointment Driving/Machine Use: no driving if taking narcotic pain meds Non-emergency contact: Surgeon Call non-emergency contact if: you have any medication questions, your pain is not controlled, your pain is unusual for you, your temperature is above 101, your wound has increased redness, your wound has increased drainage and your wou nd pain has increased Follow-up/Referrals: Estella Ralph DO [Primary Care Provider] - Laurent Loomis DO, FACS [Physician] - 10/19/23 10:15 am (call office for an appointment in 2 weeks ) Diet: Regular Addtl Attending Provider Instructions: You have surgical glue called dermabond on your surgical site incisions. You may shower with this on. This will tend to come off within a couple of weeks. Do not pick at it. No tylenol while taking Percocet:Do not take plain Tylenol while you are taking the narcotic Percocet for pain. They both contain Acetaminophen and you should not exceed >3grams of Acetaminophen within a 24 hour time period. No driving while taking narcotic pain medication. Pending Studies at Discharge: Yes Studies:: surgical pathology Stand-Alone Forms: My [facility], Work/School Release, Smoking Cessation Medications and DC Order Prescriptions: New oxycodone-acetaminophen 5-325 mg tablet 1 - 2 tab PO .H2w-I8p MDD Max 6 tabs per day PRN (Reason: pain) Qty: 15 0RF Continued fluoxetine [Prozac] 10 mg capsule 10 mg PO DAILY Qty: 90 1RF trazodone 50 mg tablet 50 mg PO DAILY albuterol sulfate 90 mcg/actuation HFA aerosol inhaler 2 puff inhalation Q6H PRN (Reason: shortness of breath or wheezing) Qty: 18 3RF levothyroxine 75 mcg tablet 75 mcg PO DAILY Qty: 30 0RF drospirenone-ethinyl estradiol [Vestura (28)] 3-0.02 mg tablet 1 tab PO DAILY hydroxyzine pamoate 25 mg capsule 25 mg PO TID PRN (Reason: anxiety or insomnia) Qty: 30 2RF Hair,Skin and Nails Tablet 1 dose PO QAM Discharge Orders: Discharge Order (Routine); Ordered 10/03/23 Ordered By: Vel Hawkins/Other Patient Handouts: Appendectomy Lap Dc Admission Data Admit Date/Time: 10/03/23 00:29 Attending Provider: Laurent Loomis Admit Provider: Otf Lr Primary Care Provider: Estella Ralph Other Providers: Laurent Loomis Other Interventions: Discharge Summary Assessment (RN) Last Done: 10/03/23 14:51 Coding Level of Care Code 93494 IN/OBS DISCH 30 MIN/LESS Diagnoses Acute appendicitis with localized peritonitis K35.30
--- NOTE | 2023-10-06 09:42 | Coding Query ---
BMI To promote full compliance with coding requirements relating to patient care, physician participation is requested in all cases of general milling superintendent uncertainty. Please assist us with the question(s) below: Please place an X within the parenthesis (x). If other, please document: BMI 54 was documented in this record for this patient. The Operative Report documents, "Patient is 5 foot 2 and weighs 134 kg, her BMI is 54. Due to this the case was more difficult and added about 50% of the time to the operation" If the BMI is significant, please check the box that provides a more specific associated diagnosis: ( ) Overweight/Obese ( ) Obesity (x ) Morbid obesity ( ) Obesity Hypoventilation Syndrome (OHS) ( ) Heathy weight, not significant ( ) Underweight/Thin ( ) Other, please specify Thank you Beronica AMIN
== END 2023-10-03 16:11 | disposition home or self-care (01) | DRG 398 ==
LOC: ED 22:02 → 3N 10-03 00:29